=== PATIENT | male | born 1940 | race Two or more races ===

== ENCOUNTER 2024-02-25 23:56 | Inpatient (IN) | payer OTHER, MEDICARE ==
[~2024-02-25] VITALS: Ht 175.3 cm; Wt 84.4 kg
[2024-02-26] MEDS ORDERED: ACETAMINOPHEN ES 500 MG TABLET ONE (00:46)
[2024-02-26 00:48] LABS: BASOPHILS % (AUTO) 0.3 % (0.0-2.0); EOSINOPHILS % (AUTO) 0.3 % (0.0-6.0); HEMATOCRIT 41 % (39-51); HEMOGLOBIN 13.6 g/dL (13.5-17.5); LYMPHOCYTES # (AUTO) 0.2 K/uL (0.8-4.8); LYMPHOCYTES % (AUTO) 3.5 % (20.0-44.0); MEAN CORPUSCULAR HEMOGLOBIN 30 PG (26.0-33.0); MEAN CORPUSCULAR HGB CONC 34 g/dl (31.0-36.0); MEAN CORPUSCULAR VOLUME 88 fL (80-96); MONOCYTES % (AUTO) 0.5 % (2.0-12.0); NEUTROPHILS # (AUTO) 6.5 K/uL (1.8-8.9); NEUTROPHILS % (AUTO) 95.4 % (43.0-81.0); PLATELET COUNT (AUTO) 224 K/uL (150-450); RED BLOOD CELL COUNT(AUTO) 4.61 MIL/uL (4.5-6.0); RED CELL DISTRIBUTION WIDTH 14.5 % (11.5-15.0); WHITE BLOOD COUNT (AUTO) 6.8 K/uL (4.3-11.0)
[2024-02-26] MEDS: IV NS 0.9% 1,000 ML BAG IV ONE ×2 (00:54→01:33)
[2024-02-26] MEDS: ACETAMINOPHEN 325 MG TABLET PO ONE (00:54)
[2024-02-26 00:55] LABS: CALCIUM, SERUM 9.3 mg/dL (8.5-10.1); CARBON DIOXIDE 22 mmol/L (21-32); CHLORIDE 107 mmol/L (98-107); GLUCOSE 144 mg/dL (74-106); POTASSIUM 3.8 mmol/L (3.5-5.1); SODIUM SERUM 142 mmol/L (136-145); UREA NITROGEN, BLOOD 24 mg/dL (7-18)
[2024-02-26 01:01] LABS: ALANINE AMINOTRANSFERASE 17 U/L (12-78); ALKALINE PHOSPHATASE 73 U/L (46-116); ASPARTATE AMINOTRANSFERASE 23 U/L (15-37); BILIRUBIN,DIRECT 0.3 mg/dL (0.0-0.2); BILIRUBIN,TOTAL 0.9 mg/dL (0.2-1.0); TOTAL PROTEIN, SERUM 7.7 g/dL (6.4-8.2)
[2024-02-26 01:03] LABS: INR 1.03 (0.91-1.10); PARTIAL THROMBOPLASTIN TIME 24.8 SEC (24.3-34.3); PROTHROMBIN TIME 10.9 SECS (9.2-11.1)
[2024-02-26 01:18] LABS: APPEARANCE,URINE TURBID (CLEAR); BILIRUBIN,URINE NEGATIVE (NEGATIVE); BLOOD, URINE 3+ Ery/uL (NEGATIVE); COLOR,URINE DARK YELLOW (YELLOW); KETONES,URINE NEGATIVE (NEGATIVE); LEUKOCYTE ESTERASE ,URINE 2+ (NEGATIVE); NITRITE, URINE POSITIVE (NEGATIVE); PROTEIN,URINE 3+ mg/dl (NEGATIVE); UGLUCOSE NEGATIVE (NEGATIVE); UROBILINOGEN,URINE 0.2 EU/dL (0.2)
[2024-02-26 01:19] LABS: ADD URINE CULTURE YES; BACTERIA,URINE Moderate /HPF (None Seen); RBC,URINE 21-50 /HPF (0-2); SQUAMOUS EPITHELIAL CELL,UR Few /HPF (None Seen); WBC,URINE TOO NUMEROUS TO COUN /HPF (0-3)
[2024-02-26 01:20] LABS: LACTIC ACID 2.6 mmol/L (0.4-2.0)
[2024-02-26] MEDS: IV NS 0.9% 500 ML BAG IV ONE (01:30)
[2024-02-26] MEDS ORDERED: CEFTRIAXONE 1GM BAG (ER ONLY) 50 ML IV ONE (01:34)
[2024-02-26] MEDS: CEFTRIAXONE 1GM BAG (ER ONLY) 1 GM/50 ML PIGGYBACK IV ONE (01:35)
[2024-02-26] MEDS ORDERED: Z GUARD REMEDY 4 OZ OINT TP PRN (03:00)
[2024-02-26] MEDS ORDERED: MAGNESIUM HYDROXIDE 30 ML UDC PO PRN (03:00)
[2024-02-26] MEDS ORDERED: DEXTROSE 50%-WATER 50 ML DISP.SYRIN IV PRN (03:00)
[2024-02-26] MEDS ORDERED: ONDANSETRON HCL/PF 4 MG/2 ML VIAL IVP PRN (03:00)
[2024-02-26] MEDS ORDERED: MAG HYDROX/AL HYDROX/SIMETH 30 ML UDC PO PRN (03:00)
[2024-02-26 04:30] VITALS: BP 122/79; TEMP 97.7; O2SAT 96
[2024-02-26] MEDS: IV NS 0.9% 1,000 ML IV SCH (04:51)
[2024-02-26] MEDS: INSULIN REGULAR, HUMAN 100 UNIT/ML 3 ML VIAL SQ PRN (06:55)
[2024-02-26] MEDS: BLOOD SUGAR DIAGNOSTIC 1 EACH STRIP IN SCH (06:55)
[2024-02-26 08:00] VITALS: BP 119/66; TEMP 97.7; O2SAT 96
[2024-02-26 08:35] LABS: MAGNESIUM 2.1 mg/dL (1.8-2.4)
[2024-02-26 08:53] LABS: PHOSPHORUS 0.9 mg/dL (2.5-4.9)
[2024-02-26] MEDS: MINERAL OIL/PETROL OINT 396 GM JAR TP SCH (10:44)
[2024-02-26 12:00] VITALS: BP 108/59; TEMP 97.7; O2SAT 98
[2024-02-26] MEDS: Sodium Phosphate 30 MMOL in IV NS 0.9% 250 ML IV SCH (13:57)
[2024-02-26] MEDS: IV NS 0.9% 1,000 ML IV PRN (14:19)
[2024-02-26] MEDS ORDERED: ACET-2030 PO (15:31)
[2024-02-26] MEDS ORDERED: ATOR40TA PO (15:31)
[2024-02-26] MEDS ORDERED: TAMS-12 PO (15:31)
[2024-02-26] MEDS ORDERED: AMLO-212 PO (15:31)
[2024-02-26] MEDS ORDERED: SITA50TA PO (15:31)
[2024-02-26] MEDS ORDERED: GABA-532 PO (15:31)
[2024-02-26] MEDS ORDERED: LEVO50TA8 PO (15:31)
[2024-02-26 16:00] VITALS: BP 126/67; TEMP 97.7; O2SAT 97
[2024-02-26 20:39] VITALS: BP 116/56; TEMP 99.9; O2SAT 95
[2024-02-26 20:54] LABS: CREATININE, URINE 68.3 MG/DL (30.0-125.0); URINE TOTAL PROTEIN 244.5 mg/dL (0-11.9)
[2024-02-26] MEDS: ACETAMINOPHEN 325 MG TABLET PO PRN (23:58)
[2024-02-27 00:15] VITALS: BP 118/61; TEMP 100.2; O2SAT 98
[2024-02-27] MEDS: CEFTRIAXONE 1 G in IV D5W 50 ML IV SCH (01:00)
[2024-02-27 04:45] VITALS: BP 106/68; TEMP 98.2; O2SAT 98
[2024-02-27 06:41] LABS: BASOPHILS # (AUTO) 0.1 K/uL (0.0-0.2); BASOPHILS % (AUTO) 0.9 % (0.0-2.0); EOSINOPHILS # (AUTO) 0.1 K/uL (0.0-0.7); EOSINOPHILS % (AUTO) 1.8 % (0.0-6.0); HEMATOCRIT 33 % (39-51); HEMOGLOBIN 11.2 g/dL (13.5-17.5); LYMPHOCYTES # (AUTO) 1.4 K/uL (0.8-4.8); LYMPHOCYTES % (AUTO) 17.5 % (20.0-44.0); MEAN CORPUSCULAR HEMOGLOBIN 30 PG (26.0-33.0); MEAN CORPUSCULAR HGB CONC 34 g/dl (31.0-36.0); MEAN CORPUSCULAR VOLUME 88 fL (80-96); MONOCYTES # (AUTO) 0.5 K/uL (0.1-1.30); MONOCYTES % (AUTO) 6.8 % (2.0-12.0); NEUTROPHILS # (AUTO) 5.8 K/uL (1.8-8.9); PLATELET COUNT (AUTO) 151 K/uL (150-450); RED BLOOD CELL COUNT(AUTO) 3.74 MIL/uL (4.5-6.0); RED CELL DISTRIBUTION WIDTH 14.7 % (11.5-15.0)
[2024-02-27 07:11] LABS: ALANINE AMINOTRANSFERASE 11 U/L (12-78); ALKALINE PHOSPHATASE 51 U/L (46-116); ASPARTATE AMINOTRANSFERASE 19 U/L (15-37); BILIRUBIN,TOTAL 0.4 mg/dL (0.2-1.0); CALCIUM, SERUM 7.4 mg/dL (8.5-10.1); CARBON DIOXIDE 22 mmol/L (21-32); CHLORIDE 112 mmol/L (98-107); CREATININE 1.8 mg/dL (0.6-1.3); GLUCOSE 113 mg/dL (74-106); MAGNESIUM 2.2 mg/dL (1.8-2.4); PHOSPHORUS 2.3 mg/dL (2.5-4.9); POTASSIUM 3.6 mmol/L (3.5-5.1); SODIUM SERUM 144 mmol/L (136-145); UREA NITROGEN, BLOOD 26 mg/dL (7-18)
[2024-02-27 07:12] LABS: CREATINE KINASE, TOTAL 34 U/L (39-308)
[2024-02-27 09:29] VITALS: BP 110/61; TEMP 97.8; O2SAT 98
[2024-02-27 13:40] VITALS: BP 131/72; TEMP 98.2; O2SAT 95
[2024-02-27 16:35] VITALS: BP 128/73; TEMP 99.2; O2SAT 97
[2024-02-27] MEDS: NEUTRA PHOS 1 POWD.PACKET PO ONE (16:47)
[2024-02-27 20:00] VITALS: BP 138/66; TEMP 98.4; O2SAT 97
[2024-02-28] VITALS: BP 152/75; TEMP 98.2; O2SAT 96
[2024-02-28 07:15] LABS: BASOPHILS % (AUTO) 0.7 % (0.0-2.0); EOSINOPHILS # (AUTO) 0.2 K/uL (0.0-0.7); EOSINOPHILS % (AUTO) 2.6 % (0.0-6.0); HEMATOCRIT 36 % (39-51); HEMOGLOBIN 12.1 g/dL (13.5-17.5); LYMPHOCYTES # (AUTO) 1.9 K/uL (0.8-4.8); LYMPHOCYTES % (AUTO) 27.4 % (20.0-44.0); MEAN CORPUSCULAR HEMOGLOBIN 30 PG (26.0-33.0); MEAN CORPUSCULAR HGB CONC 34 g/dl (31.0-36.0); MEAN CORPUSCULAR VOLUME 89 fL (80-96); MONOCYTES # (AUTO) 0.6 K/uL (0.1-1.30); MONOCYTES % (AUTO) 8.5 % (2.0-12.0); NEUTROPHILS # (AUTO) 4.1 K/uL (1.8-8.9); NEUTROPHILS % (AUTO) 60.8 % (43.0-81.0); PLATELET COUNT (AUTO) 185 K/uL (150-450); RED BLOOD CELL COUNT(AUTO) 4.03 MIL/uL (4.5-6.0); RED CELL DISTRIBUTION WIDTH 14.6 % (11.5-15.0); WHITE BLOOD COUNT (AUTO) 6.8 K/uL (4.3-11.0)
[2024-02-28 07:41] LABS: CALCIUM, SERUM 8.7 mg/dL (8.5-10.1); CARBON DIOXIDE 23 mmol/L (21-32); CHLORIDE 110 mmol/L (98-107); CREATININE 1.6 mg/dL (0.6-1.3); GLUCOSE 82 mg/dL (74-106); POTASSIUM 3.8 mmol/L (3.5-5.1); SODIUM SERUM 142 mmol/L (136-145); UREA NITROGEN, BLOOD 21 mg/dL (7-18)
[2024-02-28 08:00] VITALS: BP 158/81; TEMP 98.4; O2SAT 98
[2024-02-28 09:06] LABS: PTH, INTACT 84 pg/mL (15-65)
[2024-02-28 12:00] VITALS: BP 157/75; TEMP 98.4; O2SAT 97
[2024-02-28 16:00] VITALS: BP 153/82; TEMP 98.6; O2SAT 96
[2024-02-28 20:00] VITALS: BP 162/78; TEMP 97.9; O2SAT 96
[2024-02-29] VITALS: BP 168/85; TEMP 97.9; O2SAT 96
[2024-02-29 02:00] VITALS: BP 140/80
[2024-02-29 04:00] VITALS: BP 159/71; TEMP 98; O2SAT 97
[2024-02-29 07:05] LABS: BASOPHILS # (AUTO) 0.1 K/uL (0.0-0.2); BASOPHILS % (AUTO) 0.7 % (0.0-2.0); EOSINOPHILS # (AUTO) 0.2 K/uL (0.0-0.7); EOSINOPHILS % (AUTO) 2.6 % (0.0-6.0); HEMATOCRIT 37 % (39-51); HEMOGLOBIN 12.5 g/dL (13.5-17.5); LYMPHOCYTES # (AUTO) 1.9 K/uL (0.8-4.8); LYMPHOCYTES % (AUTO) 25.9 % (20.0-44.0); MEAN CORPUSCULAR HEMOGLOBIN 30 PG (26.0-33.0); MEAN CORPUSCULAR HGB CONC 34 g/dl (31.0-36.0); MEAN CORPUSCULAR VOLUME 88 fL (80-96); MONOCYTES # (AUTO) 0.6 K/uL (0.1-1.30); MONOCYTES % (AUTO) 8.2 % (2.0-12.0); NEUTROPHILS # (AUTO) 4.6 K/uL (1.8-8.9); NEUTROPHILS % (AUTO) 62.6 % (43.0-81.0); PLATELET COUNT (AUTO) 200 K/uL (150-450); RED BLOOD CELL COUNT(AUTO) 4.21 MIL/uL (4.5-6.0); RED CELL DISTRIBUTION WIDTH 14.3 % (11.5-15.0); WHITE BLOOD COUNT (AUTO) 7.3 K/uL (4.3-11.0)
[2024-02-29 07:18] LABS: CALCIUM, SERUM 8.3 mg/dL (8.5-10.1); CHLORIDE 108 mmol/L (98-107); CREATININE 1.4 mg/dL (0.6-1.3); GLUCOSE 99 mg/dL (74-106); MAGNESIUM 1.9 mg/dL (1.8-2.4); PHOSPHORUS 2.5 mg/dL (2.5-4.9); POTASSIUM 3.6 mmol/L (3.5-5.1); SODIUM SERUM 141 mmol/L (136-145); UREA NITROGEN, BLOOD 18 mg/dL (7-18)
[2024-02-29 08:11] LABS: CARBON DIOXIDE 23 mmol/L (21-32)
[2024-02-29] MEDS: VANCOMYCIN HCL 1.25 GM in IV D5W 250 ML IV SCH (10:41)
[2024-02-29 12:00] VITALS: BP 145/83; TEMP 98.1; O2SAT 95
[2024-02-29 20:11] VITALS: BP 144/90; TEMP 98.1; O2SAT 97
[2024-03-01 00:05] VITALS: BP 139/79; TEMP 98.2; O2SAT 95
[2024-03-01 04:18] VITALS: BP 144/88; TEMP 98.1; O2SAT 97
[2024-03-01 06:45] LABS: BASOPHILS # (AUTO) 0.1 K/uL (0.0-0.2); BASOPHILS % (AUTO) 0.7 % (0.0-2.0); EOSINOPHILS # (AUTO) 0.3 K/uL (0.0-0.7); EOSINOPHILS % (AUTO) 3.1 % (0.0-6.0); HEMATOCRIT 39 % (39-51); LYMPHOCYTES # (AUTO) 2.9 K/uL (0.8-4.8); LYMPHOCYTES % (AUTO) 35.2 % (20.0-44.0); MEAN CORPUSCULAR HEMOGLOBIN 29 PG (26.0-33.0); MEAN CORPUSCULAR HGB CONC 33 g/dl (31.0-36.0); MEAN CORPUSCULAR VOLUME 88 fL (80-96); MONOCYTES # (AUTO) 0.6 K/uL (0.1-1.30); MONOCYTES % (AUTO) 7.8 % (2.0-12.0); NEUTROPHILS # (AUTO) 4.4 K/uL (1.8-8.9); NEUTROPHILS % (AUTO) 53.2 % (43.0-81.0); PLATELET COUNT (AUTO) 221 K/uL (150-450); RED BLOOD CELL COUNT(AUTO) 4.47 MIL/uL (4.5-6.0); RED CELL DISTRIBUTION WIDTH 14.2 % (11.5-15.0); WHITE BLOOD COUNT (AUTO) 8.2 K/uL (4.3-11.0)
[2024-03-01 07:00] LABS: CALCIUM, SERUM 8.9 mg/dL (8.5-10.1); CARBON DIOXIDE 22 mmol/L (21-32); CHLORIDE 108 mmol/L (98-107); CREATININE 1.3 mg/dL (0.6-1.3); GLUCOSE 92 mg/dL (74-106); MAGNESIUM 2.3 mg/dL (1.8-2.4); PHOSPHORUS 3.1 mg/dL (2.5-4.9); POTASSIUM 3.6 mmol/L (3.5-5.1); SODIUM SERUM 140 mmol/L (136-145); UREA NITROGEN, BLOOD 15 mg/dL (7-18)
[2024-03-01 08:00] VITALS: BP 150/81; TEMP 97.5; O2SAT 97
[2024-03-01] MEDS ORDERED: CEFT1VIA15 IV (11:30)
[2024-03-01] MEDS: GABAPENTIN 100 MG CAPSULE PO SCH (11:42)
[2024-03-01 12:00] VITALS: BP 138/86; TEMP 98.8; O2SAT 97
[2024-03-02] MEDS ORDERED: LEVOTHYROXINE SODIUM 50 MCG TABLET PO SCH (07:30)
[2024-03-02] MEDS ORDERED: AMLODIPINE BESYLATE 5 MG TABLET PO SCH (09:00)
[2024-03-02] MEDS ORDERED: ATORVASTATIN 40 MG TABLET PO SCH (09:00)
[2024-03-02] MEDS ORDERED: TAMSULOSIN 0.4 MG CAP.SR.24H PO SCH (09:00)
[2024-03-02] MEDS ORDERED: LINAGLIPTIN 5 MG TABLET PO SCH (09:00)
[2024-03-02 15:10] LABS: *SPE A/G RATIO 0.9 (0.7-1.7); *SPE ALBUMIN 2.7 g/dL (2.9-4.4); *SPE ALPHA-1-GLOBULIN 0.2 g/dL (0.0-0.4); *SPE ALPHA-2-GLOBULIN 0.5 g/dL (0.4-1.0); *SPE BETA GLOBULIN 0.9 g/dL (0.7-1.3); *SPE GLOBULIN, TOTAL 2.9 g/dL (2.2-3.9); *SPE M-SPIKE Not Observed g/dL (Not Observed); *SPE PROTEIN TOTAL 5.6 g/dL (6.0-8.5); *SPEGAMMA GLOBULIN 1.1 g/dL (0.4-1.8)
== END 2024-03-01 14:00 | DRG 720 ==
LOC: ER 02-26 00:04 → MED 02-26 03:32 → TELE 02-26 04:28
PROVIDERS: ADMIT Nurse Practitioner Acute Care; ATTEND Nurse Practitioner Acute Care
DX: A41.9 Sepsis, unspecified organism (principal); N17.0 Acute kidney failure with tubular necrosis; E87.20 Acidosis, unspecified; E44.1 Mild protein-calorie malnutrition; D68.59 Other primary thrombophilia; E88.09 Other disorders of plasma-protein metabolism, not elsewhere classified; I12.9 Hypertensive chronic kidney disease with stage 1 through stage 4 chronic kidney disease, or unspecified chronic kidney disease; N39.0 Urinary tract infection, site not specified; N18.9 Chronic kidney disease, unspecified; Z20.822 Contact with and (suspected) exposure to COVID-19; E11.22 Type 2 diabetes mellitus with diabetic chronic kidney disease; E03.9 Hypothyroidism, unspecified; Z79.84 Long term (current) use of oral hypoglycemic drugs; Z79.899 Other long term (current) drug therapy; Z79.890 Hormone replacement therapy; B96.89 Other specified bacterial agents as the cause of diseases classified elsewhere; N13.6 Pyonephrosis; E66.9 Obesity, unspecified; M89.8X9 Other specified disorders of bone, unspecified site; Z79.4 Long term (current) use of insulin; Z87.442 Personal history of urinary calculi
CPT/HCPCS: 36415; 71045-TC; 76770-TC; 80048-TC; 80053-TC; 80076-TC; 81001; 82550-TC; 82570-TC; 82962-TC; 83605-TC; 83735-TC; 83970; 84100-TC; 84155; 84165; 84300-TC; 84443-TC; 84484-TC; 85025-TC; 85730-TC; 87040-TC; 87081-TC; 87086-TC; 97112-TC; 97116-TC; 97530-TC; A4223; A9563; G0378; J0696; J1815; J7030; J7040; J7050; J7060

== ENCOUNTER 2024-06-10 13:52 | Inpatient (IN) | payer MEDICARE, OTHER ==
[~2024-06-10] VITALS: Ht 175.3 cm; Wt 65.8 kg
[~2024-06-10 13:52] MED LIST: ACET-2030 PO; AMLO-212 PO; ATOR40TA PO; CEFT1VIA15 IV; GABA-532 PO; LEVO50TA8 PO; SITA50TA PO; TAMS-12 PO
[2024-06-10 15:11] LABS: BASOPHILS % (AUTO) 0.4 % (0.0-2.0); EOSINOPHILS % (AUTO) 0.1 % (0.0-6.0); HEMATOCRIT 45 % (39-51); HEMOGLOBIN 14.6 g/dL (13.5-17.5); LYMPHOCYTES # (AUTO) 1.9 K/uL (0.8-4.8); LYMPHOCYTES % (AUTO) 14.7 % (20.0-44.0); MEAN CORPUSCULAR HEMOGLOBIN 28 PG (26.0-33.0); MEAN CORPUSCULAR HGB CONC 32 g/dl (31.0-36.0); MEAN CORPUSCULAR VOLUME 88 fL (80-96); MONOCYTES # (AUTO) 0.8 K/uL (0.1-1.30); MONOCYTES % (AUTO) 5.9 % (2.0-12.0); NEUTROPHILS % (AUTO) 78.9 % (43.0-81.0); PLATELET COUNT (AUTO) 246 K/uL (150-450); RED BLOOD CELL COUNT(AUTO) 5.13 MIL/uL (4.5-6.0); RED CELL DISTRIBUTION WIDTH 14.4 % (11.5-15.0); WHITE BLOOD COUNT (AUTO) 12.7 K/uL (4.3-11.0)
[2024-06-10] MEDS: IV NS 0.9% 1,000 ML BAG IV ONE ×2 (15:18→16:52)
[2024-06-10 15:21] LABS: CALCIUM, SERUM 9.1 mg/dL (8.5-10.1); CARBON DIOXIDE 21 mmol/L (21-32); CHLORIDE 105 mmol/L (98-107); CREATININE 5.4 mg/dL (0.6-1.3); GLUCOSE 136 mg/dL (74-106); POTASSIUM 5.7 mmol/L (3.5-5.1); SODIUM SERUM 137 mmol/L (136-145)
[2024-06-10 15:24] LABS: UREA NITROGEN, BLOOD 145 mg/dL (7-18)
[2024-06-10 15:51] LABS: LACTIC ACID 1.6 mmol/L (0.4-2.0)
[2024-06-10 16:00] LABS: ALANINE AMINOTRANSFERASE 31 U/L (12-78); ALBUMIN 2.6 g/dL (3.4-5.0); ALKALINE PHOSPHATASE 93 U/L (46-116); ASPARTATE AMINOTRANSFERASE 33 U/L (15-37); BILIRUBIN,DIRECT 0.3 mg/dL (0.0-0.2); BILIRUBIN,TOTAL 0.7 mg/dL (0.2-1.0); TOTAL PROTEIN, SERUM 8.3 g/dL (6.4-8.2)
[2024-06-10] MEDS ORDERED: ALBUTEROL FS 2.5 MG/3 ML VIAL.NEB NEB ONE (16:00)
[2024-06-10 16:02] LABS: APPEARANCE,URINE CLOUDY (CLEAR); COLOR,URINE YELLOW (YELLOW)
[2024-06-10 16:03] LABS: PROTEIN,URINE 3+ mg/dl (NEGATIVE)
[2024-06-10 16:04] LABS: UGLUCOSE NEGATIVE (NEGATIVE)
[2024-06-10 16:05] LABS: BILIRUBIN,URINE NEGATIVE (NEGATIVE); BLOOD, URINE 3+ Ery/uL (NEGATIVE); KETONES,URINE NEGATIVE (NEGATIVE)
[2024-06-10 16:06] LABS: LEUKOCYTE ESTERASE ,URINE 3+ (NEGATIVE); NITRITE, URINE POSITIVE (NEGATIVE); UROBILINOGEN,URINE 0.2 EU/dL (0.2)
[2024-06-10] MEDS ORDERED: SODIUM BICARBONATE SYR 50 MEQ/50 ML DISP.SYRIN ONE ×2 (16:06→23:59)
[2024-06-10] MEDS ORDERED: CALCIUM CHLORIDE 1,000 MG/10 ML DISP.SYRIN ONE (16:06)
[2024-06-10] MEDS ORDERED: SODIUM ZIRCONIUM CYCLOSILICATE 10 GM POWD.PACK ONE (16:06)
[2024-06-10 16:10] LABS: INR 1.08 (0.91-1.10); PARTIAL THROMBOPLASTIN TIME 29.4 SEC (24.3-34.3); PROTHROMBIN TIME 11.4 SECS (9.2-11.1)
[2024-06-10 16:14] LABS: ADD URINE CULTURE YES; BACTERIA,URINE 1+ /HPF (None Seen); RBC,URINE TOO NUMEROUS TO COUN /HPF (0-2); SQUAMOUS EPITHELIAL CELL,UR None Seen /HPF (None Seen); WBC,URINE TOO NUMEROUS TO COUN /HPF (0-3)
[2024-06-10] MEDS: CALCIUM CHLORIDE 1,000 MG/10 ML DISP.SYRIN IV ONE (16:15)
[2024-06-10] MEDS: SODIUM BICARBONATE SYR 50 MEQ/50 ML DISP.SYRIN IV ONE (16:15)
[2024-06-10] MEDS ORDERED: GLUC1KIT IM (16:19)
[2024-06-10] MEDS ORDERED: ACET-868 PO (16:19)
[2024-06-10] MEDS ORDERED: *INS REG3 SQ (16:19)
[2024-06-10] MEDS ORDERED: DOCU100T2 PO (16:19)
[2024-06-10] MEDS ORDERED: ASPI-1169 PO (16:19)
[2024-06-10] MEDS ORDERED: NA P133E RC (16:19)
[2024-06-10] MEDS ORDERED: BISA10SU11 RC (16:19)
[2024-06-10] MEDS ORDERED: CRAN400C PO (16:19)
[2024-06-10] MEDS ORDERED: MAGN400O6 PO (16:19)
[2024-06-10] MEDS ORDERED: LINA5TAB PO (16:19)
[2024-06-10] MEDS ORDERED: ALBUTEROL FS 2.5 MG/3 ML VIAL.NEB ONE (16:20)
[2024-06-10] MEDS: SODIUM ZIRCONIUM CYCLOSILICATE 10 GM POWD.PACK PO ONE (16:26)
[2024-06-10] MEDS ORDERED: hydrALAZINE HCL IV 20 MG VIAL IV PRN (18:00)
[2024-06-10] MEDS ORDERED: ONDANSETRON HCL/PF 4 MG/2 ML VIAL IVP PRN (18:00)
[2024-06-10] MEDS ORDERED: MORPHINE SULFATE INJ 2 MG/ML DISP.SYRIN IV PRN (18:00)
[2024-06-10] MEDS ORDERED: ACETAMINOPHEN 325 MG TABLET PO PRN (18:00)
[2024-06-10] MEDS ORDERED: DEXTROSE 50%-WATER 50 ML DISP.SYRIN IV PRN (18:00)
[2024-06-10] MEDS: IV NS 0.9% 1,000 ML IV SCH (19:52)
[2024-06-10] MEDS: CEFTRIAXONE 1 G in IV D5W 50 ML IV ONE (20:13)
[2024-06-10 20:18] VITALS: BP 98/61; TEMP 98.4; O2SAT 99
[2024-06-10] MEDS: GABAPENTIN 100 MG CAPSULE PO SCH (20:20)
[2024-06-10] MEDS: HEPARIN SODIUM, PORCINE 5000 UNITS/1 ML VIAL SQ SCH (22:00)
[2024-06-10] MEDS: ATORVASTATIN 40 MG TABLET PO SCH (22:06)
[2024-06-10] MEDS: BLOOD SUGAR DIAGNOSTIC 1 EACH STRIP VI SCH (22:27)
[2024-06-10] MEDS: *INSULIN REGULAR(HUMULIN R)HUM 100 UNIT/ML VIAL SQ PRN (22:28)
[2024-06-11] MEDS ORDERED: SODIUM BICARBONATE SYR 50 MEQ/50 ML DISP.SYRIN ONE ×3 (00:02→00:56)
[2024-06-11 00:11] VITALS: BP 95/52; TEMP 97.9; O2SAT 94
[2024-06-11] MEDS: Sodium Bicarbonate 100 MEQ in IV D5/0.45 NACL 1,000 ML IV PRN (00:13)
[2024-06-11 04:05] VITALS: BP 111/68; TEMP 97.5; O2SAT 94
[2024-06-11 07:15] LABS: BASOPHILS % (AUTO) 0.3 % (0.0-2.0); EOSINOPHILS % (AUTO) 0.6 % (0.0-6.0); HEMATOCRIT 36 % (39-51); HEMOGLOBIN 11.9 g/dL (13.5-17.5); LYMPHOCYTES # (AUTO) 1.2 K/uL (0.8-4.8); LYMPHOCYTES % (AUTO) 15.1 % (20.0-44.0); MEAN CORPUSCULAR HEMOGLOBIN 28 PG (26.0-33.0); MEAN CORPUSCULAR HGB CONC 33 g/dl (31.0-36.0); MEAN CORPUSCULAR VOLUME 86 fL (80-96); MONOCYTES # (AUTO) 0.5 K/uL (0.1-1.30); MONOCYTES % (AUTO) 6.6 % (2.0-12.0); NEUTROPHILS # (AUTO) 6.3 K/uL (1.8-8.9); NEUTROPHILS % (AUTO) 77.4 % (43.0-81.0); PLATELET COUNT (AUTO) 187 K/uL (150-450); RED CELL DISTRIBUTION WIDTH 14.4 % (11.5-15.0); WHITE BLOOD COUNT (AUTO) 8.1 K/uL (4.3-11.0)
[2024-06-11] MEDS: LEVOTHYROXINE SODIUM 50 MCG TABLET PO SCH (07:26)
[2024-06-11 07:55] LABS: ALANINE AMINOTRANSFERASE 22 U/L (12-78); ALBUMIN 2.1 g/dL (3.4-5.0); ALKALINE PHOSPHATASE 76 U/L (46-116); ASPARTATE AMINOTRANSFERASE 23 U/L (15-37); BILIRUBIN,TOTAL 0.5 mg/dL (0.2-1.0); CALCIUM, SERUM 8.2 mg/dL (8.5-10.1); CARBON DIOXIDE 22 mmol/L (21-32); CHLORIDE 112 mmol/L (98-107); CREATININE 4.2 mg/dL (0.6-1.3); GLUCOSE 99 mg/dL (74-106); MAGNESIUM 2.7 mg/dL (1.8-2.4); PHOSPHORUS 5.1 mg/dL (2.5-4.9); POTASSIUM 3.9 mmol/L (3.5-5.1); SODIUM SERUM 144 mmol/L (136-145); TOTAL PROTEIN, SERUM 6.5 g/dL (6.4-8.2)
[2024-06-11 07:56] LABS: UREA NITROGEN, BLOOD 130 mg/dL (7-18)
[2024-06-11 08:00] VITALS: BP 103/54; TEMP 98.2; O2SAT 94
[2024-06-11] MEDS: ASPIRIN 81 MG TAB.CHEW PO SCH (08:08)
[2024-06-11] MEDS: TAMSULOSIN 0.4 MG CAP.SR.24H PO SCH (08:08)
[2024-06-11] MEDS: CEFTRIAXONE 1 G in IV D5W 50 ML IV SCH (08:26)
[2024-06-11] MEDS ORDERED: AMLODIPINE BESYLATE 5 MG TABLET PO SCH (09:00)
[2024-06-11 09:30] LABS: CREATINE KINASE, TOTAL 29 U/L (39-308)
[2024-06-11] MEDS: INSULIN REGULAR, HUMAN 100 UNIT/ML 3 ML VIAL SQ PRN (11:28)
[2024-06-11 15:44] VITALS: BP 98/60; TEMP 98.2; O2SAT 92
[2024-06-11 20:00] VITALS: BP 112/75; TEMP 97.5; O2SAT 94
[2024-06-11] MEDS: Sodium Bicarbonate 100 MEQ in IV D5/0.45 NACL 1,000 ML IV SCH (22:37)
[2024-06-12] VITALS (10 sets, daily range): BP systolic 95–113; BP diastolic 57–75; TEMP 97.2–98.4; O2SAT 94–100
[2024-06-12] MEDS ORDERED: ANESTHESIA TRAY IN PYXIS 1 EA TRAY MC ONE (08:08)
[2024-06-12] MEDS ORDERED: FENTANYL PF 100MCG/2ML AMPUL ONE (08:44)
[2024-06-12 14:32] LABS: BASOPHILS % (AUTO) 0.1 % (0.0-2.0); HEMATOCRIT 39 % (39-51); HEMOGLOBIN 12.6 g/dL (13.5-17.5); LYMPHOCYTES # (AUTO) 0.5 K/uL (0.8-4.8); LYMPHOCYTES % (AUTO) 8.2 % (20.0-44.0); MEAN CORPUSCULAR HEMOGLOBIN 29 PG (26.0-33.0); MEAN CORPUSCULAR HGB CONC 33 g/dl (31.0-36.0); MEAN CORPUSCULAR VOLUME 88 fL (80-96); MONOCYTES # (AUTO) 0.1 K/uL (0.1-1.30); MONOCYTES % (AUTO) 1.5 % (2.0-12.0); NEUTROPHILS # (AUTO) 5.5 K/uL (1.8-8.9); NEUTROPHILS % (AUTO) 90.2 % (43.0-81.0); PLATELET COUNT (AUTO) 162 K/uL (150-450); RED BLOOD CELL COUNT(AUTO) 4.38 MIL/uL (4.5-6.0); RED CELL DISTRIBUTION WIDTH 14.4 % (11.5-15.0); WHITE BLOOD COUNT (AUTO) 6.1 K/uL (4.3-11.0)
[2024-06-12 15:07] LABS: CALCIUM, SERUM 8.2 mg/dL (8.5-10.1); CARBON DIOXIDE 29 mmol/L (21-32); CHLORIDE 117 mmol/L (98-107); CREATININE 3.2 mg/dL (0.6-1.3); GLUCOSE 202 mg/dL (74-106); MAGNESIUM 2.6 mg/dL (1.8-2.4); PHOSPHORUS 2.7 mg/dL (2.5-4.9); POTASSIUM 3.9 mmol/L (3.5-5.1); SODIUM SERUM 150 mmol/L (136-145)
[2024-06-12 15:12] LABS: UREA NITROGEN, BLOOD 100 mg/dL (7-18)
[2024-06-13 00:15] VITALS: BP 103/55; TEMP 98.6; O2SAT 97
[2024-06-13 04:14] VITALS: BP 110/58; TEMP 98.2; O2SAT 98
[2024-06-13 07:23] LABS: CARBON DIOXIDE 20 mmol/L (21-32); CHLORIDE 117 mmol/L (98-107); CREATININE 2.8 mg/dL (0.6-1.3); GLUCOSE 113 mg/dL (74-106); POTASSIUM 4.7 mmol/L (3.5-5.1); SODIUM SERUM 147 mmol/L (136-145)
[2024-06-13 07:30] VITALS: BP 114/68; TEMP 97.5; O2SAT 100
[2024-06-13 07:32] LABS: UREA NITROGEN, BLOOD 81 mg/dL (7-18)
[2024-06-13 16:00] VITALS: BP 106/66; TEMP 97.7; O2SAT 97
[2024-06-13 20:00] VITALS: BP 98/53; TEMP 98.2; O2SAT 97
[2024-06-14 07:21] LABS: CALCIUM, SERUM 7.9 mg/dL (8.5-10.1); CARBON DIOXIDE 29 mmol/L (21-32); CHLORIDE 117 mmol/L (98-107); CREATININE 2.4 mg/dL (0.6-1.3); GLUCOSE 102 mg/dL (74-106); POTASSIUM 4.1 mmol/L (3.5-5.1); SODIUM SERUM 153 mmol/L (136-145); UREA NITROGEN, BLOOD 59 mg/dL (7-18)
[2024-06-14 08:00] VITALS: BP 104/66; TEMP 98.1; O2SAT 99
[2024-06-14] MEDS: IV D5W 1,000 ML IV PRN (12:22)
[2024-06-14 16:00] VITALS: BP 103/63; TEMP 98.1; O2SAT 96
[2024-06-14 20:00] VITALS: BP 106/59; TEMP 98.6; O2SAT 99
[2024-06-15 07:28] LABS: BASOPHILS % (AUTO) 0.3 % (0.0-2.0); EOSINOPHILS # (AUTO) 0.1 K/uL (0.0-0.7); EOSINOPHILS % (AUTO) 1.5 % (0.0-6.0); HEMATOCRIT 34 % (39-51); LYMPHOCYTES # (AUTO) 1.7 K/uL (0.8-4.8); LYMPHOCYTES % (AUTO) 27.6 % (20.0-44.0); MEAN CORPUSCULAR HEMOGLOBIN 28 PG (26.0-33.0); MEAN CORPUSCULAR HGB CONC 32 g/dl (31.0-36.0); MEAN CORPUSCULAR VOLUME 87 fL (80-96); MONOCYTES # (AUTO) 0.5 K/uL (0.1-1.30); MONOCYTES % (AUTO) 7.9 % (2.0-12.0); NEUTROPHILS # (AUTO) 3.8 K/uL (1.8-8.9); NEUTROPHILS % (AUTO) 62.7 % (43.0-81.0); PLATELET COUNT (AUTO) 150 K/uL (150-450); RED BLOOD CELL COUNT(AUTO) 3.91 MIL/uL (4.5-6.0); RED CELL DISTRIBUTION WIDTH 14.7 % (11.5-15.0)
[2024-06-15 07:34] LABS: CALCIUM, SERUM 7.7 mg/dL (8.5-10.1); CARBON DIOXIDE 36 mmol/L (21-32); CHLORIDE 114 mmol/L (98-107); CREATININE 2.1 mg/dL (0.6-1.3); GLUCOSE 110 mg/dL (74-106); SODIUM SERUM 149 mmol/L (136-145); UREA NITROGEN, BLOOD 38 mg/dL (7-18)
[2024-06-15 08:00] VITALS: BP 103/66; TEMP 98.2; O2SAT 99
[2024-06-15 16:00] VITALS: BP 115/64; TEMP 98.6; O2SAT 96
[2024-06-15 20:20] VITALS: BP 102/58; TEMP 98.4; O2SAT 97
[2024-06-16 06:59] LABS: BASOPHILS % (AUTO) 0.3 % (0.0-2.0); EOSINOPHILS # (AUTO) 0.1 K/uL (0.0-0.7); EOSINOPHILS % (AUTO) 1.5 % (0.0-6.0); HEMATOCRIT 35 % (39-51); HEMOGLOBIN 11.5 g/dL (13.5-17.5); LYMPHOCYTES # (AUTO) 1.7 K/uL (0.8-4.8); LYMPHOCYTES % (AUTO) 23.8 % (20.0-44.0); MEAN CORPUSCULAR HEMOGLOBIN 29 PG (26.0-33.0); MEAN CORPUSCULAR HGB CONC 33 g/dl (31.0-36.0); MEAN CORPUSCULAR VOLUME 87 fL (80-96); MONOCYTES # (AUTO) 0.4 K/uL (0.1-1.30); MONOCYTES % (AUTO) 6.2 % (2.0-12.0); NEUTROPHILS # (AUTO) 4.9 K/uL (1.8-8.9); NEUTROPHILS % (AUTO) 68.2 % (43.0-81.0); PLATELET COUNT (AUTO) 133 K/uL (150-450); RED BLOOD CELL COUNT(AUTO) 3.99 MIL/uL (4.5-6.0); RED CELL DISTRIBUTION WIDTH 14.2 % (11.5-15.0); WHITE BLOOD COUNT (AUTO) 7.2 K/uL (4.3-11.0)
[2024-06-16 08:00] VITALS: BP 114/61; TEMP 97.9; O2SAT 95
[2024-06-16 08:54] LABS: CALCIUM, SERUM 8.3 mg/dL (8.5-10.1); CARBON DIOXIDE 29 mmol/L (21-32); CHLORIDE 109 mmol/L (98-107); CREATININE 1.7 mg/dL (0.6-1.3); GLUCOSE 103 mg/dL (74-106); POTASSIUM 3.8 mmol/L (3.5-5.1); SODIUM SERUM 142 mmol/L (136-145); UREA NITROGEN, BLOOD 28 mg/dL (7-18)
[2024-06-16] MEDS ORDERED: MERO500V23 IV (10:19)
== END 2024-06-16 14:20 | DRG 698 ==
LOC: ER 14:03 → TELE 18:00 → MED 06-13 12:19
PROVIDERS: ADMIT Internal Medicine; ATTEND Internal Medicine
PROC: 0TP98DZ Removal of Intraluminal Device from Ureter, Via Natural or Artificial Opening Endoscopic (ICD-10-PCS; principal; 2024-06-12)
DX: T83.123A Displacement of other urinary stents, initial encounter (principal); A41.9 Sepsis, unspecified organism; R65.20 Severe sepsis without septic shock; G93.41 Metabolic encephalopathy; N17.9 Acute kidney failure, unspecified; N13.8 Other obstructive and reflux uropathy; N39.0 Urinary tract infection, site not specified; E87.0 Hyperosmolality and hypernatremia; E87.20 Acidosis, unspecified; E11.22 Type 2 diabetes mellitus with diabetic chronic kidney disease; E87.5 Hyperkalemia; N18.9 Chronic kidney disease, unspecified; R31.0 Gross hematuria; Y83.8 Other surgical procedures as the cause of abnormal reaction of the patient, or of later complication, without mention of misadventure at the time of the procedure; Y92.89 Other specified places as the place of occurrence of the external cause; N40.1 Benign prostatic hyperplasia with lower urinary tract symptoms; E03.9 Hypothyroidism, unspecified; E78.5 Hyperlipidemia, unspecified; E11.40 Type 2 diabetes mellitus with diabetic neuropathy, unspecified; Z79.84 Long term (current) use of oral hypoglycemic drugs; Z79.4 Long term (current) use of insulin; Z79.82 Long term (current) use of aspirin; Z79.890 Hormone replacement therapy; Z79.899 Other long term (current) drug therapy; B96.89 Other specified bacterial agents as the cause of diseases classified elsewhere; F03.90 Unspecified dementia, unspecified severity, without behavioral disturbance, psychotic disturbance, mood disturbance, and anxiety; E86.1 Hypovolemia; I12.9 Hypertensive chronic kidney disease with stage 1 through stage 4 chronic kidney disease, or unspecified chronic kidney disease; Z87.442 Personal history of urinary calculi
CPT/HCPCS: 36415; 71045-TC; 76770-TC; 80048-TC; 80053-TC; 80076-TC; 81001; 82550-TC; 82962-TC; 83605-TC; 83735-TC; 83970; 84100-TC; 84155; 84165; 84484-TC; 85025-TC; 85730-TC; 86850-TC; 87040-TC; 87086-TC; 88300-TC; 94799-TC; A4217; A4223; G0378; J0696; J1100; J1644; J1815; J2405; J2704; J2765; J3010; J3490; J7030; J7050; J7060; J7070

== ENCOUNTER 2025-06-22 12:48 | Inpatient (IN) | payer MEDICARE, OTHER ==
[~2025-06-22] VITALS: Ht 175.3 cm; Wt 69.4 kg
[~2025-06-22 12:48] MED LIST changes: +*INS REG3 SQ; -ACET-2030 PO; +ACET-868 PO; +ASPI-1169 PO; +BISA10SU11 RC; -CEFT1VIA15 IV; +CRAN400C PO; +DOCU100T2 PO; +GLUC1KIT IM; +LINA5TAB PO; +MAGN400O6 PO; +MERO500V23 IV; +NA P133E RC; -SITA50TA PO
[2025-06-22 13:40] LABS: PLATELET COUNT (AUTO) 197 K/uL (150-450); RED BLOOD CELL COUNT(AUTO) 4.39 MIL/uL (4.5-6.0); RED CELL DISTRIBUTION WIDTH 16.5 % (11.5-15.0); WHITE BLOOD COUNT (AUTO) 7.3 K/uL (4.3-11.0)
[2025-06-22] MEDS ORDERED: POLY15DR40 EACHEYE (13:52)
[2025-06-22] MEDS ORDERED: CHOL100062 PO (13:52)
[2025-06-22] MEDS ORDERED: LACT-58 PO (13:52)
[2025-06-22] MEDS ORDERED: AMIN30LI66 PO (13:52)
[2025-06-22] MEDS ORDERED: CRAN3875 PO (13:52)
[2025-06-22 13:54] LABS: CALCIUM, SERUM 9.5 mg/dL (8.5-10.1); CREATININE 2.2 mg/dL (0.6-1.3); SODIUM SERUM 143 mmol/L (136-145); UREA NITROGEN, BLOOD 55 mg/dL (7-18)
[2025-06-22 13:56] LABS: ASPARTATE AMINOTRANSFERASE 24 U/L (15-37); TOTAL PROTEIN, SERUM 8.7 g/dL (6.4-8.2)
[2025-06-22] MEDS: IV NS 0.9% 1,000 ML BAG IV ONE (14:34)
[2025-06-22] MEDS ORDERED: BISACODYL SUPP (10 MG) 10 MG/SUPP.RECT SUPP.RECT RC PRN (17:00)
[2025-06-22] MEDS ORDERED: Medication Not On Formulary EA (Cran/Vitc/Mannose/Inulin/Brom (Uti-Stat Liquid) 30 ML) PO SCH (17:00)
[2025-06-22] MEDS ORDERED: MAGNESIUM HYDROXIDE 30 ML UDC PO PRN (17:00)
[2025-06-22] MEDS ORDERED: DEXTROSE 50%-WATER 50 ML DISP.SYRIN IV PRN (17:00)
[2025-06-22] MEDS ORDERED: ONDANSETRON HCL/PF 4 MG/2 ML VIAL IVP PRN (17:00)
[2025-06-22] MEDS ORDERED: MAG HYDROX/AL HYDROX/SIMETH 30 ML UDC PO PRN (17:00)
[2025-06-22] MEDS ORDERED: ACETAMINOPHEN 325 MG TABLET PO PRN (17:00)
[2025-06-22 17:44] LABS: APPEARANCE,URINE SLIGHTLY CLOUDY (CLEAR); BLOOD, URINE TRACE-INTA Ery/uL (NEGATIVE); LEUKOCYTE ESTERASE ,URINE 3+ (NEGATIVE); NITRITE, URINE POSITIVE (NEGATIVE); UGLUCOSE NEGATIVE (NEGATIVE)
[2025-06-22 17:49] LABS: ADD URINE CULTURE YES; SQUAMOUS EPITHELIAL CELL,UR 0-2 /HPF (None Seen)
[2025-06-22] MEDS: LACTOSE-FREE FOOD 237 ML BOTTLE PO SCH (18:00)
[2025-06-22] MEDS: PROSOURCE / PROSTAT (PYXIS) 30 ML UDC PO SCH (18:21)
[2025-06-22] MEDS: BLOOD SUGAR DIAGNOSTIC 1 EACH STRIP IN SCH (18:21)
[2025-06-22] MEDS: HEPARIN SODIUM, PORCINE 5000 UNITS/1 ML VIAL SQ SCH (21:15)
[2025-06-22] MEDS: TAMSULOSIN 0.4 MG CAP.SR.24H PO SCH (21:28)
[2025-06-22] MEDS: ATORVASTATIN 40 MG TABLET PO SCH (21:28)
[2025-06-23 07:04] LABS: CREATININE 2.1 mg/dL (0.6-1.3); PHOSPHORUS 3.4 mg/dL (2.5-4.9); SODIUM SERUM 148.0 mmol/L (136-145); UREA NITROGEN, BLOOD 46.0 mg/dL (7-18)
[2025-06-23 07:21] LABS: CALCIUM, SERUM 8.8 mg/dL (8.5-10.1)
[2025-06-23 07:28] LABS: PLATELET COUNT (AUTO) 168 K/uL (150-450); RED BLOOD CELL COUNT(AUTO) 4.04 MIL/uL (4.5-6.0); RED CELL DISTRIBUTION WIDTH 16.0 % (11.5-15.0); WHITE BLOOD COUNT (AUTO) 5.5 K/uL (4.3-11.0)
[2025-06-23 08:00] VITALS: BP 105/68; TEMP 97.5; O2SAT 99
[2025-06-23] MEDS ORDERED: Medication Not On Formulary EA (Cranberry 450 MG) PO SCH (09:00)
[2025-06-23] MEDS: CEFTRIAXONE 1 G in IV D5W 50 ML IV SCH (09:25)
[2025-06-23] MEDS: DOCUSATE SODIUM 100 MG CAPSULE PO SCH (09:26)
[2025-06-23] MEDS: LEVOTHYROXINE SODIUM 50 MCG TABLET PO SCH (09:26)
[2025-06-23] MEDS: AMLODIPINE BESYLATE 5 MG TABLET PO SCH (09:26)
[2025-06-23] MEDS: LINAGLIPTIN 5 MG TABLET PO SCH (09:26)
[2025-06-23] MEDS: ASPIRIN 81 MG TAB.CHEW PO SCH (09:27)
[2025-06-23] MEDS: POLYVINYL ALCOHOL 15 ML BOTTLE EACHEYE SCH (09:43)
[2025-06-23 16:00] VITALS: BP 113/73; TEMP 97.7; O2SAT 98
[2025-06-23 20:00] VITALS: BP_SYST 108; BP_DIAS 74; BP_DIAS 76; TEMP 97.7; O2SAT 97
[2025-06-24 07:31] LABS: PLATELET COUNT (AUTO) 165 K/uL (150-450); RED BLOOD CELL COUNT(AUTO) 4.08 MIL/uL (4.5-6.0); RED CELL DISTRIBUTION WIDTH 16.2 % (11.5-15.0); WHITE BLOOD COUNT (AUTO) 5.1 K/uL (4.3-11.0)
[2025-06-24 07:40] LABS: ASPARTATE AMINOTRANSFERASE 19.0 U/L (15-37); CALCIUM, SERUM 8.9 mg/dL (8.5-10.1); CREATININE 2.1 mg/dL (0.6-1.3); PHOSPHORUS 3.0 mg/dL (2.5-4.9); SODIUM SERUM 144.0 mmol/L (136-145); TOTAL PROTEIN, SERUM 7.8 g/dL (6.4-8.2); UREA NITROGEN, BLOOD 44.0 mg/dL (7-18)
[2025-06-24 08:00] VITALS: BP 108/65; TEMP 97.5; O2SAT 98
[2025-06-24 08:11] LABS: CREATINE KINASE, TOTAL 33.0 U/L (39-308)
[2025-06-24 08:28] VITALS: BP 108/65; TEMP 97.5; O2SAT 98
[2025-06-24 09:07] VITALS: BP 108/65; TEMP 97.5; O2SAT 98
[2025-06-24] MEDS: DOCUSATE SODIUM 100 MG CAPSULE PO SCH (09:12)
[2025-06-24] MEDS: INSULIN REGULAR, HUMAN 100 UNIT/ML 3 ML VIAL SQ PRN (11:34)
[2025-06-24 16:00] VITALS: BP 96/65; TEMP 97.5; O2SAT 99
[2025-06-24 17:06] VITALS: BP 96/65; TEMP 97.5; O2SAT 99
[2025-06-24 20:00] VITALS: BP 103/62; TEMP 97.5; O2SAT 99
[2025-06-25 07:08] LABS: PLATELET COUNT (AUTO) 159 K/uL (150-450); RED BLOOD CELL COUNT(AUTO) 4.04 MIL/uL (4.5-6.0); RED CELL DISTRIBUTION WIDTH 16.5 % (11.5-15.0); WHITE BLOOD COUNT (AUTO) 4.7 K/uL (4.3-11.0)
[2025-06-25 07:29] LABS: CALCIUM, SERUM 8.9 mg/dL (8.5-10.1); CREATININE 2.1 mg/dL (0.6-1.3); PHOSPHORUS 3.0 mg/dL (2.5-4.9); SODIUM SERUM 145.0 mmol/L (136-145); UREA NITROGEN, BLOOD 40.0 mg/dL (7-18)
[2025-06-25 08:00] VITALS: BP 127/75; TEMP 98.4; O2SAT 100
[2025-06-25 09:10] LABS: PTH, INTACT 35 pg/mL (15-65)
[2025-06-25 09:12] VITALS: BP 127/75; TEMP 98.4; O2SAT 100
[2025-06-25 16:00] VITALS: BP 142/68; TEMP 97.3; O2SAT 98
[2025-06-25 17:20] VITALS: BP 142/68; TEMP 97.3; O2SAT 98
== END 2025-06-25 19:20 | DRG 563 ==
LOC: ER 13:00 → MED 16:59
DX: S42.345A Nondisplaced spiral fracture of shaft of humerus, left arm, initial encounter for closed fracture (principal); N13.6 Pyonephrosis; E87.0 Hyperosmolality and hypernatremia; J90 Pleural effusion, not elsewhere classified; N17.9 Acute kidney failure, unspecified; N18.4 Chronic kidney disease, stage 4 (severe); Z79.84 Long term (current) use of oral hypoglycemic drugs; Z87.440 Personal history of urinary (tract) infections; I12.9 Hypertensive chronic kidney disease with stage 1 through stage 4 chronic kidney disease, or unspecified chronic kidney disease; E11.22 Type 2 diabetes mellitus with diabetic chronic kidney disease; X58.XXXA Exposure to other specified factors, initial encounter; Y92.9 Unspecified place or not applicable; D64.9 Anemia, unspecified; E03.9 Hypothyroidism, unspecified; E78.5 Hyperlipidemia, unspecified; Z79.82 Long term (current) use of aspirin; Z79.890 Hormone replacement therapy; Z79.899 Other long term (current) drug therapy; B96.89 Other specified bacterial agents as the cause of diseases classified elsewhere; G89.29 Other chronic pain; N40.0 Benign prostatic hyperplasia without lower urinary tract symptoms; Z59.71 Insufficient health insurance coverage; Z87.442 Personal history of urinary calculi; N13.9 Obstructive and reflux uropathy, unspecified; M89.8X9 Other specified disorders of bone, unspecified site; R74.8 Abnormal levels of other serum enzymes
CPT/HCPCS: 36415; 71045-TC; 73030-TC; 73060-TC; 73200-TC; 76700-TC; 76770-TC; 80048-TC; 80053-TC; 80076-TC; 81001; 82550-TC; 82962-TC; 83605-TC; 83690-TC; 83735-TC; 83970; 84100-TC; 84155; 84165; 84484-TC; 85025-TC; 87040-TC; 87081-TC; 87086-TC; 87186-TC; 97110-TC; 97530-TC; 97535-TC; A4223; G0378; J0696; J1644; J1815; J7040; J7060; J7070